=== PATIENT | female | born 1940 | race Caucasian/White ===

== ENCOUNTER 2018-06-30 11:10 | Observation (INO) | payer OTHER ==
--- OUTSIDE RECORDS SUMMARY | 2018-06-30 11:12 | XMS REPORT ---
:1940 [facility] Address [address] [place] [address] Dr. [address] [place] [address] Care Team Providers Name Role Phone Unavailable Unavailable Unavailable Problems This patient has no known problems. Allergies, Adverse Reactions, Alerts This patient has no known allergies or adverse reactions. Medications This patient has no known medications.
--- OUTSIDE RECORDS SUMMARY | 2018-06-30 11:12 | XMS REPORT | Clinical Summary ---
:1940 Author Organization [facility] Address [address] [place] [address] Care Team Providers Name Role Phone Dennis Wu MD Primary Care Provider Allergies Active Allergy Reactions Severity Noted Date Comments Penicillin G Rash Low 11/22/2017 Sulfa (Sulfonamide Antibiotics) Rash Low 11/22/2017 Medications Medication Sig Dispensed Refills Start Date End Date Status amIODarone Take 200 mg by 0 Active (PACERONE) 200 MG mouth 2 (two) tablet times a day. rivaroxaban Take 20 mg by 0 Active (XARELTO) 20 mg mouth daily. tablet ferrous sulfate 325 Take 325 mg by 0 Active (65 FE) MG tablet mouth 3 (three) times a week. levothyroxine Take 112 mcg by 0 Active (SYNTHROID, LEVOXYL) mouth every other 112 mcg tablet day. levothyroxine Take 100 mcg by 0 Active (SYNTHROID, LEVOXYL) mouth every other 100 mcg tablet day. valsartan-hydrochlor Take 1 tablet by 0 Active othiazide mouth daily. (DIOVAN-HCT) 320-12.5 mg per tablet cycloSPORINE Administer 1 drop 0 Active (RESTASIS) 0.05 % to both eyes ophthalmic emulsion every 12 (twelve) hours. metoprolol succinate Take 1 tablet (25 90 tablet 0 11/22/2017 02/20/2018 XL (TOPROL-XL) 25 mg mg total) by 24 hr tablet mouth daily for 90 days. Active Problems Not on file Encounters Date Type Specialty Care Team Description 01/31/2018 Hospital Encounter Procedural Matty Harris, Atrial fibrillation, Cardiology unspecified type 12/26/2017 Transcribe Orders Procedural Fahed, Matty, Atrial fibrillation, Cardiology MD unspecified type (Primary Dx) 11/22/2017 Surgery Procedural Matty Harris, Ep cardioversion w sergo Cardiology [28402 (CPT)] 11/22/2017 Anesthesia Event Procedural Delfin Donnelly Cardiology CRNA 11/22/2017 Hospital Encounter Procedural Matty Harris Atrial fibrillation Cardiology unspecified type 11/20/2017 Transcribe Orders Procedural Matty Harris Cardiology after 06/29/2017 Social History Tobacco Use Types Packs/Day Years Used Date Never Smoker Smokeless Tobacco: Never Used Alcohol Use Drinks/Week oz/Week Comments Yes Sex Assigned at Date Recorded Not on file Job Start Date Occupation Industry Not on file Not on file Not on file Travel History Travel Start Travel End No recent travel history available. Last Filed Vital Signs Vital Sign Reading Time Taken Blood Pressure 190/95 01/31/2018 10:58 AM CDT Pulse 98 01/31/2018 10:58 AM CDT Temperature 36.7 C (98.1 F) 11/22/2017 9:46 AM CDT Respiratory Rate 20 11/22/2017 12:05 PM CDT Oxygen Saturation 97% 11/22/2017 12:05 PM CDT Inhaled Oxygen Concentration - - Weight 62.3 kg (137 lb 6.4 oz) 11/22/2017 9:46 AM CDT Height 172.7 cm (5' 8") 11/22/2017 9:46 AM CDT Body Mass Index 20.89 11/22/2017 9:46 AM CDT Plan of Treatment Health Maintenance Due Date Last Done Comments BREAST CANCER SCREENING 1992 COLON CANCER SCREENING 1992 SHINGRIX VACCINE (1 of 2) 1992 ZOSTER VACCINE 2002 PNEUMOCOCCAL POLYSACCHARIDE VACCINE AGE 65 AND OVER 12/22/2007 PNEUMOCOCCAL-13 12/22/2007 INFLUENZA VACCINE 02/21/2018 Procedures Procedure Name Priority Date/Time Associated Comments Diagnosis CV CTA CORONARY PRE Routine 01/31/2018 11:23 Atrial Results for this AFIB PULMONARY VEIN AM CDT fibrillation, procedure are in MAPPING unspecified type the results section. ESTIMATED GFR Routine 01/31/2018 11:02 Results for this AM CDT procedure are in the results section. POC CREATININE Routine 01/31/2018 11:02 Results for this AM CDT procedure are in the results section. ECHOCARDIOGRAM Routine 11/22/2017 11:46 Results for this TRANSESOPHAGEAL AM CDT procedure are in the results section. ECG 12-LEAD STAT 11/22/2017 11:25 Results for this AM CDT procedure are in the results section. EP CARDIOVERSION W SERGO Routine 11/22/2017 11:21 Atrial Results for this AM CDT fibrillation, procedure are in unspecified type the results section. ECG 12-LEAD STAT 11/22/2017 10:00 Results for this AM CDT procedure are in the results section. after 06/29/2017 Results Cv cta pre afib pulmonary vein mapping (01/31/2018 11:23 AM CDT) Narrative Performed At [facility] [address] [place] [address] CTA Coronary Arteries Report Pat.Name:JORDY JAIMES Pat.ID:[id number] St.Date: 01/31/2018 Refer.MD:Matty Harris MD Exam Time: 11:02:00 AM Study Type:CTA Coronary Arteries Height:68inWeight: 137lb BSA: 1.74 m2 DOBAge:1940,77Y Sex: FEMALEBP: 190/95 HR:88 bpm Nuclear Tech:RT Fredrick(R)(CT) Pat. Stat.:Outpatient CPT - 4: AFIB w Coronary [id number] Nuclear Event ID:[id number] Order ID:[id number] Reason for Study:Atrial fibrillation ablation procedure Procedures:CTA Chest Non- Coronary Race:C SUMMARY: Technique: IV contrast was administered and sequential 0.[address] cuts were obtained through the chest [facility] the[facility] scanner. Post-processing and 3D reconstruction were done using the [employer] Shared workstation. Interactive image viewing and volumetric display and analysis were also performed. CTA RESULTS Left Main: A normal sized artery which arises normally from the left sinus of Valsalva and divides into the left anterior descending and circumflex coronary arteries. No significant atherosclerotic plaque is present. Left anterior descending (LAD): A normal sized artery which wraps around the apex and gives off two diagonal branches. No significant atherosclerotic plaque is present. The first diagonal is a normal sized artery which has no significant atherosclerotic plaque. The second diagonal is a normal sized artery which has no significant atherosclerotic plaque. Left circumflex: A normal sized non-dominant artery which gives off two major obtuse marginal arteries before terminating in the AV groove. No significant atherosclerotic plaque is present. The first obtuse marginal is a normal sized artery which has no significant atherosclerotic plaque. The second obtuse marginal is a normal sized bifurcating artery which has no significant atherosclerotic plaque. Right coronary artery: A normal sized dominant artery which arises normally from the right sinus of Valsalva and gives off several right ventricular branches, the posterior descending artery and the posterolateral artery.Mild calcified atherosclerotic plaque is present in the proximal and mid segments but without significant stenosis. The posterior descending is a normal sized artery which has no significant atherosclerotic plaque. The posterolateral branch is a normal sized artery which has no significant atherosclerotic plaque. Stents: None. Bypass Grafts: None. Pulmonary Arteries: Normal pulmonary artery sizes with no proximal thrombus identified. Left Atrial and Pulmonary Vein(PV) Dimensions: Left atrial size (A-P diameter) 4.1 cm. LA volume 142 ml. Normal PV anatomy Left superior PV15 mm. Left inferior PV15 mm. Right superior PV22 mm. Right inferior PV19 mm. There is no evidence of the left atrial appendage clot. Left Ventricular Valve Morphology/Function: LV septal wall thickness 7 mm. Thoracic Aortic Dimensions: No aortic aneurysm or dissection is seen. Aortic root: 3.2 cm. Sinotubular junction 2.7 cm. Mid ascending thoracic aorta 3.2 cm. Descending thoracic aorta 2.1 cm. Diffuse atherosclerotic disease is present. Pericardium: No pericardial effusion or pericardial thickening. Non-Cardiac Findings: Bilateral emphysematous lung changes. CONCLUSION CT coronary angiography shows no significant coronary artery stenosis. Normal PV anatomy. Bi-atrial enlargement Left atrial appendage appears ligated. NO LA or stump thrombus STUDY QUALITY The study quality is good. COMMENTS: None. The above report was based on a dedicated Cardiovascular CTA Protocol and interpreted by a Diesel Dragline Operator.Should a more comprehensive assessment of non-cardiovascular findings be desired, please consult a radiologist.These images are available in the [facility] [place] [employer] PACS system. Signed 01/31/2018 12:19 PM Dangelo Pereira MD Procedure Note Interface, Radiology Results In - 01/31/2018 12:19 PM CDT [facility] and Cardiac CT [address] [place] [address] CTA Coronary Arteries Report Pat.Name: JORDY JAIMES Pat.ID: [id number] St.Date: 01/31/2018 Refer.MD: Matty Harris MD Exam Time: 11:02:00 AM Study Type:CTA Coronary Arteries Height: 68in Weight: 137lb BSA: 1.74 m2 Age: 5 1940,77Y Sex: FEMALE BP: 190/95 HR: 88 bpm Nuclear Tech:RT Fredrick(R)(CT) Pat. Stat.:Outpatient CPT - 4: AFIB w Coronary [id number] Nuclear Event ID:[id number] Order ID: [id number] Reason for Study:Atrial fibrillation ablation procedure Procedures:CTA Chest Non- Coronary Race: C SUMMARY: Technique: IV contrast was administered and sequential 0.[address] cuts were obtained through the chest using the Siemens Som[employer] Force CT scanner. Post-processing and 3D reconstruction were done using the [employer] Shared workstation. Interactive image viewing and volumetric display and analysis were also performed. CTA RESULTS Left Main: A normal sized artery which arises normally from the left sinus of Valsalva and divides into the left anterior descending and circumflex coronary arteries. No significant atherosclerotic plaque is present. Left anterior descending (LAD): A normal sized artery which wraps around the apex and gives off two diagonal branches. No significant atherosclerotic plaque is present. The first diagonal is a normal sized artery which has no significant atherosclerotic plaque. The second diagonal is a normal sized artery which has no significant atherosclerotic plaque. Left circumflex: A normal sized non-dominant artery which gives off two major obtuse marginal arteries before terminating in the AV groove. No significant atherosclerotic plaque is present. The first obtuse marginal is a normal sized artery which has no significant atherosclerotic plaque. The second obtuse marginal is a normal sized bifurcating artery which has no significant atherosclerotic plaque. Right coronary artery: A normal sized dominant artery which arises normally from the right sinus of Valsalva and gives off several right ventricular branches, the posterior descending artery and the posterolateral artery. Mild calcified atherosclerotic plaque is present in the proximal and mid segments but without significant stenosis. The posterior descending is a normal sized artery which has no significant atherosclerotic plaque. The posterolateral branch is a normal sized artery which has no significant atherosclerotic plaque. Stents: None. Bypass Grafts: None. Pulmonary Arteries: Normal pulmonary artery sizes with no proximal thrombus identified. Left Atrial and Pulmonary Vein (PV) Dimensions: Left atrial size (A-P diameter) 4.1 cm. LA volume 142 ml. Normal PV anatomy Left superior PV15 mm. Left inferior PV15 mm. Right superior PV22 mm. Right inferior PV19 mm. There is no evidence of the left atrial appendage clot. Left Ventricular Valve Morphology/Function: LV septal wall thickness 7 mm. Thoracic Aortic Dimensions: No aortic aneurysm or dissection is seen. Aortic root: 3.2 cm. Sinotubular junction 2.7 cm. Mid ascending thoracic aorta 3.2 cm. Descending thoracic aorta 2.1 cm. Diffuse atherosclerotic disease is present. Pericardium: No pericardial effusion or pericardial thickening. Non-Cardiac Findings: Bilateral emphysematous lung changes. CONCLUSION CT coronary angiography shows no significant coronary artery stenosis. Normal PV anatomy. Bi-atrial enlargement Left atrial appendage appears ligated. NO LA or stump thrombus STUDY QUALITY The study quality is good. COMMENTS: None. The above report was based on a dedicated Cardiovascular CTA Protocol and interpreted by a Diesel Dragline Operator. Should a more comprehensive assessment of non-cardiovascular findings be desired, please consult a radiologist. These images are available in the [facility] [place] [employer] PACS system. Signed 01/31/2018 12:19 PM Dangelo Pereira MD Performing Organization Address City/State/Zipcode Phone Number [facility] [address] [place] [address] Estimated GFR (01/31/2018 11:02 AM CDT) GFR Non Af Amer 61 mL/min/1.73 m2 [facility] DEPARTMENT OF PATHOLOGY AND GENOMIC MEDICINE GFR Af Amer 74 mL/min/1.73 m2 [facility] DEPARTMENT OF Comment: PATHOLOGY AND GENOMIC Chronic kidney disease: <60 mL/min/1.73m2 MEDICINE Kidney failure: <15 mL/min/1.73m2 The estimated GFR is calculated from the IDMS-traceable Modification of Diet in Renal Disease Equation. The accuracy of the calculation is poor when the creatinine is normal. Calculated values >90 mL/min/1.73m2 are not reported. This equation has not been validated in children (<18 years), women, the elderly (>70 years), or ethnic groups other than Caucasians and Americans. Specimen Blood Performing Organization Address City/[facility]/Zipcode Phone Number [facility] DEPARTMENT OF PATHOLOGY AND [address] [place] [address] [employer] MEDICINE POC creatinine (01/31/2018 11:02 AM CDT) POC creatinine 0.9 0.5 - 0.9 mg/dl [facility] DEPARTMENT OF PATHOLOGY Comment: AND GENOMIC MEDICINE Meter ID: [id number] Cement Tester Assistant: Santy Hernandez Specimen Blood Performing Organization Address [facility] Phone Number [facility] DEPARTMENT OF PATHOLOGY AND [address] [place] [address] [employer] [facility] Echocardiogram transesophageal (11/22/2017 11:46 AM CDT) Narrative Performed At [facility] Transesophageal Echo Report [address] [place] [address], [place] [address] Pat.Name:JORDY JAIMES Pat.ID:[id number] .Date: 11/22/2017Refer.MD:Matty Harris MD Exam Time: 10:38:00 AM Study Type:SERGO Height:68.11in Weight:137lb BSA: 1.74 m2 DOBAge:1940,76Y Sex: FEMALEBP:197/97 HR:102 bpm Sonogrphr: Keon Lopez MD Pat. Stat.:OutpatientStudy Status:Final Echo Event ID:[id number] Order ID:[id number] Reason for Study:Atrial fibrillation History / Clinical:Arrhythmias, Atrial Fibrillation Procedures:Transesophageal Echo with Colorflow Doppler Race:C FINDINGS: SERGO:The attending photography colorist performed the SERGO procedure and waspresent for the entire duration. The patient was counseledand an informed consent was obtained. Topical and intravenousanesthesia was administered. The esophagus was intubatedwithout difficulty. The probe was passed to the gastricfundus and all standard echocardiographic views wereobtained. The patient tolerated the procedure well. LV: LV size is normal. LV EF is normal. Overall wall motion is normal.Estimated EF is 55-59%. RV: RV size is normal. RV systolic function is normal. LA: LA volume is enlarged. No thrombus or mass is visualized in theLA. LA appendage flush occlusion due to prior clip; minimalstump present.. RA: RA volume is enlarged. AO: Mild atherosclerotic changes seen in the aortic arch and descendingaorta. UZMA: No pericardial effusion. AV: No structural AV abnormalities noted. MV: No structural MV abnormalities noted. Mild mitral regurgitation. PV: No structural PV abnormalities noted. TV: No structural TV abnormalities noted. Mild tricuspid regurgitation SERGO: Anesthesia: Per Anesthesia ASA Class: 3 Physician: Dangelo Pereira MD Fagot Heater: Keon Lopez MD Pre TEEBP HR Post SERGO BP HR 197/97 102 115/56 96 Meds:Viscous xylocaine, Cetacaine spray to oropharynx, Per Anesthesia Complications: None Condition: Stable Signed 11/22/2017 12:07 PM Dangelo Pereira MD Procedure Note Interface, Radiology Results In - 11/22/2017 12:07 PM CDT Transesophageal Echo Report [address], [place], [place] [address] [facility].Name: JORDY JAIMES.ID: [id number] .Date: 11/22/2017 Refer.MD: Matty Harris MD Exam Time: 10:38:00 AM Study Type:SERGO Height: 68.11in Weight: 137lb BSA: 1.74 m2 Age: 5 1940,76Y Sex: FEMALE BP: 197/97 HR: 102 bpm Sonogrphr: Keon Lopez MD Pat. Stat.:Outpatient Study Status:Final Echo Event ID:[id number] Order ID: [id number] Reason for Study:Atrial fibrillation History / Clinical:Arrhythmias, Atrial Fibrillation Procedures:Transesophageal Echo with Colorflow Doppler Race: C FINDINGS: SERGO: The attending photography colorist performed the SERGO procedure and was present for the entire duration. The patient was counseled and an informed consent was obtained. Topical and intravenous anesthesia was administered. The esophagus was intubated without difficulty. The probe was passed to the gastric fundus and all standard echocardiographic views were obtained. The patient tolerated the procedure well. LV: LV size is normal. LV EF is normal. Overall wall motion is normal. Estimated EF is 55-59%. RV: RV size is normal. RV systolic function is normal. LA: LA volume is enlarged. No thrombus or mass is visualized in the LA. LA appendage flush occlusion due to prior clip; minimal stump present.. RA: RA volume is enlarged. AO: Mild atherosclerotic changes seen in the aortic arch and descending aorta. UZMA: No pericardial effusion. AV: No structural AV abnormalities noted. MV: No structural MV abnormalities noted. Mild mitral regurgitation. PV: No structural PV abnormalities noted. TV: No structural TV abnormalities noted. Mild tricuspid regurgitation SERGO: Anesthesia: Per Anesthesia ASA Class: 3 Physician: Dangelo Pereira MD Fagot Heater: Keon Lopez MD Pre SERGO BP HR Post SERGO BP HR 197/97 102 115/56 96 Meds: Viscous xylocaine, Cetacaine spray to oropharynx, Per Anesthesia Complications: None Condition: Stable Signed 11/22/2017 12:07 PM Dangelo Pereira MD Performing Organization Address [facility] Phone Number [employer] [address] [place] [address] ECG 12 lead (11/22/2017 11:25 AM CDT)Only the most recent of2 resultswithin the time period is included. Ventricular rate 83 [facility] Atrial rate 83 [facility] KS interval 314 [facility] QRSD interval 88 [facility] QT interval 404 [facility] QTC interval 474 [facility] P axis 1 104 [facility] QRS axis 1 15 [facility] T wave axis 80 [facility] EKG impression Sinus rhythm with sinus arrhythmia with 1st degree AV block- Prolonged QT-Abnormal ECG-In automated comparison with ECG of 22-NOV-2017 10:00, -Sinus rhythm has replaced Atrial [id number]-Cbo-dxdsqfwg change in ST segment in Inferior leads-Electronically [facility] MUSE Signed By Vipin Blackwood ([id number]) on 11/23/2017 8:29:25 AM Performing Organization Address [facility] Phone Number [facility] MUSE [address] [place] [address] Cv electrophysiology procedure (11/22/2017 11:21 AM CDT) Narrative Performed At [employer] ANALYST: MAXIMO Harris MD COMPLICATIONS: None. ESTIMATED BLOOD LOSS: Zero. SPECIMENS: None. SEDATION: Moderate. PREOPERATIVE DIAGNOSIS: Atrial fibrillation. POSTOPERATIVE DIAGNOSIS: Atrial fibrillation. PROCEDURES PERFORMED: 1.Sedation administered, monitored by anesthesia service. 2.External cardioversion PREOPERATIVE HISTORY OF PRESENT ILLNESS: The patient is a 76year-old female with a history of long standing persistent atrial Fibrillation s/p Lariat procedure 5 years ago followed by unsuccessful ablation 2 months later who was referred to me for symptomatic atrial fibrillation despite being on very high dose of sotalol. Patient was loaded with amiodarone and presents to today for both SERGO and CVN. Reason for SERGO is to assess BLAYNE remnant anatomy and decide on anticoagulation. PROCEDURE IN DETAIL: The patient was brought to the procedure room in a fasting state. Informed consent was obtained.He had a SERGO performed immediately before the cardioversion, which demonstratingNO left atrial appendage, very smooth remnant and complete occlusion from Lariat. There was no smoke but very enlarged atria.Additional propofol was administered and a synchronized 300-joule biphasic shock was delivered did not convert the patient. A repeat DCCV with 360J converted to NSR for ~20secs before afib recurred. Repeat DCCV with 360J x1 converted gain afib to NSR. However on ECG done 5 minutes later, patient was in a very slow AFL with 2:1 conduction (~80bpm). Monitored anesthesia care was used for the procedure. Patient woke up from anesthesia intact. CONCLUSION: Unuccessful electrical cardioversion of atrial fibrillation to slow atrial flutter. No BLAYNE stump seen on SERGO RECOMMENDATIONS: -Continue amiodarone 200mg BID for now -Follow-up with me in 2 weeks; If afib recurrence, we'll discuss [employer]-P with AVJ ablation Performing Organization Address City/State/Zipcode Phone Number [facility] [address] [place] [address] after 06/29/2017 Insurance Payer Benefit Plan / Group Subscriber ID Type Phone Address MEDICARE MEDICARE PART A AND B xxxxxxxxxx Medicare [place], [place] AETNA AETNA PPO OPEN CHOICE xxxxxxxxx PPO Advance Directives Patient has advance care planning documents, and code status on file. For more information, please contact:Rylan Skelton[address] [place] [address] Code Status Date Activated Date Inactivated Comments Full Code 11/22/2017 11:35 AM 11/22/2017 4:24 PM Code Status decision reached by: Patient
--- NOTE | 2018-06-30 11:56 | RAD REPORT ---
EXAM DESCRIPTION: CT - Head Brain Wo Cont - 06/30/2018 11:30 am CLINICAL HISTORY: Confusion COMPARISON: None. TECHNIQUE: Computed axial tomography of the head was obtained. IV contrast was not requested. All CT scans are performed using dose optimization technique as appropriate and may include automated exposure control or mA/KV adjustment according to patient size. FINDINGS: An intracranial bleed is not seen . The ventricles are normal in caliber. No extra-axial fluid collection is noted. Fluid within the sinuses/ mastoids is not seen. IMPRESSION: No acute intracranial abnormality is seen. If patient's symptoms persist MRI of the bra in would be recommended.
[2018-06-30 12:07] LABS: Absolute Lymphocytes (CBC) 0.7 K/uL (0.7-4.9); Absolute Monocytes 0.7 K/uL (0.1-1.3); Absolute Neutrophil 5.3 K/uL (1.8-8.0); Basophils % 1.2 % (0-1.3); Eosinophils % 2.2 % (0-4.4); Hematocrit 37.2 % (36.0-45.0); Lymphocytes % 10.2 % (15.3-44.8); MCH 34.4 pg (27.0-35.0); MCV 99.5 fL (80-100); MPV 8.1 fL (7.6-11.3); Monocytes % 10.2 % (3.3-12.3); RBC Red Blood Cell Count 3.74 M/uL (3.86-4.86)
[2018-06-30 12:10] LABS: Protime INR 1.09
--- NOTE | 2018-06-30 12:17 | RAD REPORT ---
EXAM DESCRIPTION: Timo Single View06/30/2018 11:50 am CLINICAL HISTORY: Hypertension COMPARISON: 2010 FINDINGS: The lungs appear clear of acute infiltrate. The heart is normal size IMPRESSION: No acute abnormalities displayed
[2018-06-30 12:22] LABS: ALT/SGPT 30 U/L (12-78); AST/SGOT 21 U/L (15-37); Alkaline Phosphatase 128 U/L (45-117); BUN Blood Urea Nitrogen 23 mg/dL (7-18); Bicarbonate 28 mmol/L (21-32); Bilirubin Direct 0.2 mg/dL (0-0.2); Bilirubin Total 0.7 mg/dL (0.2-1.0); CKMB Creatine Kinase MB 1.1 ng/mL (0.3-3.6); Creatine Phosphokinase 53 U/L (26-192); Glucose Level 118 mg/dL (74-106); Lipase 263 U/L (73-393); Magnesium 2.3 mg/dL (1.8-2.4); Potassium 3.7 mmol/L (3.5-5.1); Protein, Total 7.1 g/dL (6.4-8.2); Sodium Level 140 mmol/L (136-145); Troponin (Emerg Dept Use Only) < 0.02 ng/mL (0.0-0.045)
[2018-06-30 12:57] LABS: Urine Amorphous Sediment 1+ /HPF (NONE SEEN); Urine Bacteria NONE SEEN /HPF (<20); Urine Culture Reflex Order NOT NEEDED; Urine RBC NONE SEEN /HPF (NONE SEEN)
[2018-06-30 13:44] LABS: Urine Blood NEGATIVE (NEG); Urine Glucose NEGATIVE (NEG); Urine Protein NEGATIVE (NEG); Urine Specific Gravity 1.015 (1.005-1.030); Urine pH 6.5 (5.0-7.0)
[2018-06-30] MEDS ORDERED: NA CHLORIDE 0.9% 0 ML ONE (13:52)
[2018-06-30] MEDS ORDERED: NA CHLORIDE 0.9% 500 ML ONE (13:57)
--- NOTE | 2018-06-30 14:46 | EDPHYS ---
Physician Documentation [facility] Name: Etta Pan Age: 77 yrs Sex: Female : 1940 Arrival Date: 06/30/2018 Time: 11:10 Bed 7 Private MD: Dennis Wu V ED Physician Claudio Hussein HPI: 06/30 13:09 This 77 yrs old Female presents to ER via Wheelchair with complaints of High snw Blood Pressure, CONFUSION. 13:09 The patient has elevated blood pressure and discovered this unknown. Onset: The snw symptoms/episode began/occurred suddenly, today. Modifying factors: The symptoms are aggravated by felt confused. Associated signs and symptoms: The patient has no apparent associated signs or symptoms. Severity of symptoms: At its worst the blood pressure was 170 mm Hg. It is unknown whether or not the patient has had similar symptoms in the past. cataract - lens replacement to left one week ago. Historical: - Allergies: 11:24 Sulfa (Sulfonamide Antibiotics); sv - Home Meds: 11:24 Avalide oral oral [Active]; metoprolol succinate oral oral [Active]; levothyroxine oral sv [Active]; mitochondrial energy boost [Active]; curaphen [Active]; multi probiotic [Active]; urinary tract essentials [Active]; - PMHx: 11:24 Atrial Fib; Hypertension; sv - Ebola Screening: : No symptoms or risks identified at this time. ROS: 13:09 Constitutional: Negative for fever, chills, and weight loss, Eyes: Negative for injury, snw pain, redness, and discharge, ENT: Negative for injury, pain, and discharge, Neck: Negative for injury, pain, and swelling, Cardiovascular: Negative for chest pain, palpitations, and edema, Respiratory: Negative for shortness of breath, cough, wheezing, and pleuritic chest pain, Abdomen/GI: Negative for abdominal pain, nausea, vomiting, diarrhea, and constipation, Back: Negative for injury and pain, : Negative for injury, bleeding, discharge, and swelling, MS/Extremity: Negative for injury and deformity, Skin: Negative for injury, rash, and discoloration. 13:09 Neuro: Positive for feeling confused/off. Exam: 13:09 Constitutional: This is a well developed, well nourished patient who is awake, alert, snw and in no acute distress. Head/Face: Normocephalic, atraumatic. Eyes: Pupils equal round and reactive to light, extra-ocular motions intact. Lids and lashes normal. Conjunctiva and sclera are non-icteric and not injected on right, left with discoloration/hemorrhage post lens replacement one week ago. Cornea within normal limits. Periorbital areas with no swelling, redness, or edema. ENT: Nares patent. No nasal discharge, no septal abnormalities noted. Tympanic membranes are normal and external auditory canals are clear. Oropharynx with no redness, swelling, or masses, exudates, or evidence of obstruction, uvula midline. Mucous membranes moist. Neck: Trachea midline, no thyromegaly or masses palpated, and no cervical lymphadenopathy. Supple, full range of motion without nuchal rigidity, or vertebral point tenderness. No Meningismus. Chest/axilla: Normal chest wall appearance and motion. Nontender with no deformity. No lesions are appreciated. Cardiovascular: Regular rate and rhythm with a normal S1 and S2. No gallops, murmurs, or rubs. Normal PMI, no JVD. No pulse deficits. Respiratory: Lungs have equal breath sounds bilaterally, clear to auscultation and percussion. No rales, rhonchi or wheezes noted. No increased work of breathing, no retractions or nasal flaring. Abdomen/GI: Soft, non-tender, with normal bowel sounds. No distension or tympany. No guarding or rebound. No evidence of tenderness throughout. Back: No spinal tenderness. No costovertebral tenderness. Full range of motion. Skin: Warm, dry with normal turgor. Normal color with no rashes, no lesions, and no evidence of cellulitis. MS/ Extremity: Pulses equal, no cyanosis. Neurovascular intact. Full, normal range of motion. Neuro: Awake and alert, GCS 15, oriented to person, place, time, and situation. Cranial nerves II-XII grossly intact. Motor strength 5/5 in all extremities. Sensory grossly intact. Cerebellar exam normal. Normal gait. Psych: Awake, alert, with orientation to person, place and time. Behavior, mood, and affect are within normal limits. Vital Signs: 11:15 BP 197 / 106; Pulse 104; Resp 18; Pulse Ox 100% ; Weight 62.14 kg; Height 5 ft. 5 in. sv (165.10 cm); Pain 0/10; 11:20 Temp 98.0(O); ss 11:52 BP 166 / 89; Pulse 95; Resp 18 S; Pulse Ox 96% on R/A; Pain 0/10; aa5 12:30 BP 168 / 93; Pulse 95; Resp 13; Pulse Ox 97% on R/A; mh5 13:00 BP 160 / 85; Pulse 90; Resp 16 S; Pulse Ox 98% on R/A; aa5 13:45 BP 145 / 86; Pulse 92; Resp 12; Pulse Ox 97% on R/A; mh5 15:00 BP 165 / 89; Pulse 90; Resp 18 S; Temp 98.0(TE); Pulse Ox 97% on R/A; Pain 0/10; aa5 11:15 Body Mass Index 22.80 (62.14 kg, 165.10 cm) sv NIH Stroke Scale Scores: 11:20 NIHSS Score: 0 aa5 13:09 NIHSS Score: 0 snw Noemi Coma Score: 13:09 Eye Response: spontaneous(4). Verbal Response: oriented(5). Motor Response: obeys snw commands(6). Total: 15. MDM: 11:22 Patient medically screened. snw 11:29 Data reviewed: vital signs, nurses notes. Data interpreted: Pulse oximetry: on room air snw is 100 %. Interpretation: normal. ED course: pt to CT post FSBS (130's), returned via w/c, taken to x-ray via w/c. 13:09 ED course: Pt is not a candidate for TPA, no s/s. snw 14:46 Physician consultation: Dennis Wu MD was called at 14:30, was contacted at 14:30, snw regarding admission, patient's condition. 14:46 ED course: Dr. Wu at bedside. snw 06/30 11:23 Order name: Hepatic Function; Complete Time: 12:32 snw 12 11:23 Order name: Ckmb; Complete Time: 12:32 snw 12 11:23 Order name: CPK; Complete Time: 12:32 snw 06/30 11:23 Order name: Lipase; Complete Time: 12:32 snw 06/30 11:23 Order name: Magnesium; Complete Time: 12:32 snw 06/30 11:23 Order name: Troponin (emerg Dept Use Only); Complete Time: 12:32 snw 06/30 11:13 Order name: CT Head Brain wo Cont; Complete Time: 11:59 ss 06/30 11:23 Order name: Basic Metabolic Panel; Complete Time: 12:32 snw 06/30 11:23 Order name: CBC with Diff; Complete Time: 12:10 snw 06/30 11:23 Order name: Protime (+inr); Complete Time: 12:21 snw 06/30 11:23 Order name: Ptt, Activated; Complete Time: 12:21 snw 06/30 11:23 Order name: Urine Culture snw 06/30 11:23 Order name: Urine Microscopic Only; Complete Time: 12:58 snw 06/30 13:35 Order name: Urine Dipstick--Ancillary (enter results); Complete Time: 14:07 bd 06/30 11:22 Order name: FSBS; Complete Time: 11:50 snw 06/30 11:23 Order name: Call for Old EKG; Complete Time: 11:50 snw 06/30 11:23 Order name: Call for Old Records; Complete Time: 11:50 snw 06/30 11:23 Order name: Stroke CXR 1 View; Complete Time: 12:21 snw 06/30 11:23 Order name: EKG; Complete Time: 11:24 snw 06/30 11:23 Order name: Cardiac monitoring; Complete Time: 11:25 snw 06/30 11:23 Order name: EKG - Nurse/Tech; Complete Time: 11:40 snw 06/30 11:23 Order name: IV Saline Lock; Complete Time: 11:50 snw 06/30 11:23 Order name: Labs collected and sent; Complete Time: 11:50 snw 06/30 11:23 Order name: NPO; Complete Time: 11:50 snw 06/30 11:23 Order name: O2 Per Protocol; Complete Time: 11:25 snw 06/30 11:23 Order name: O2 Sat Monitoring; Complete Time: 11:25 snw 06/30 11:23 Order name: Stroke Swallow Screen; Complete Time: 12:41 snw 06/30 11:23 Order name: Urine Dipstick-Ancillary (obtain specimen); Complete Time: 12:28 snw 12 14:19 Order name: consult Order-Dennis Wu MD (Internal Medicine) sn Administered Medications: 13:25 Drug: NS 0.9% 500 ml Route: IV; Rate: bolus; Site: right antecubital; ca1 14:05 Follow up: IV Status: Completed infusion aa5 15:19 Drug: Eliquis 5 mg Route: PO; aa5 15:35 Follow up: Response: No adverse reaction aa5 Point of Care Testing: Blood Glucose: 11:15 Blood Glucose: 135 mg/dL; sv Ranges: Critical Glucose Levels:Adult <50 mg/dl or >400 mg/dl <40 mg/dl or >180 mg/dl Disposition: 06/30/18 14:46 Hospitalization ordered by Dennis Wu for Observation. Preliminary diagnosis is Altered mental status, unspecified - Confusion. - Bed requested for Telemetry/MedSurg (observation). - Status is Observation. aa5 - Condition is Stable. - Problem is new. - Symptoms are unchanged. UTI on Admission? No NIH Stroke Scale - NIH Stroke Score Date: 06/30/2018 Time: 11:20 Total Score = 0 1a. Level of Consciousness (LOC) - 0(Alert) 1b. Level of Consciousness (LOC) (Year \T\ Age) - 0(Both) 1c. LOC Commands (Open \T\ Closes Eyes/Ambulatory Service Representative) - 0(Both) 2. Best Gaze (Lateral Gaze Paresis) - 0(Normal) 3. Visual Field Loss - 0(No visual loss) 4. Facial Palsy - 0(Normal) 5a. Left Arm: Motor (10-second hold) - 0(No drift) 5b. Right Arm: Motor (10-second hold) - 0(No drift) 6a. Left Leg: Motor (5-second hold - always test supine) - 0(No drift) 6b. Right Leg: Motor (5-second hold - always test supine) - 0(No drift) 7. Limb Ataxia (finger/nose \T\ heel/watts - test with eyes open) - 0(Absent) 8. Sensory Loss (pinprick arms/legs/face) - 0(Normal) 9. Best Language: Aphasia (description/naming/reading) - 0(No aphasia) 10. Dysarthria (speech clarity - read or repeat words) - 0(Normal) 11. Extinction and Inattention (visual/tactile/auditory/spatial/personal) - 0(No abnormality) Initials: aa5 NIH Stroke Scale - NIH Stroke Score Date: 06/30/2018 Time: 13:09 Total Score = 0 1a. Level of Consciousness (LOC) - 0(Alert) 1b. Level of Consciousness (LOC) (Year \T\ Age) - 0(Both) 1c. LOC Commands (Open \T\ Closes Eyes/Ambulatory Service Representative) - 0(Both) 2. Best Gaze (Lateral Gaze Paresis) - 0(Normal) 3. Visual Field Loss - 0(No visual loss) 4. Facial Palsy - 0(Normal) 5a. Left Arm: Motor (10-second hold) - 0(No drift) 5b. Right Arm: Motor (10-second hold) - 0(No drift) 6a. Left Leg: Motor (5-second hold - always test supine) - 0(No drift) 6b. Right Leg: Motor (5-second hold - always test supine) - 0(No drift) 7. Limb Ataxia (finger/nose \T\ heel/watts - test with eyes open) - 0(Absent) 8. Sensory Loss (pinprick arms/legs/face) - 0(Normal) 9. Best Language: Aphasia (description/naming/reading) - 0(No aphasia) 10. Dysarthria (speech clarity - read or repeat words) - 0(Normal) 11. Extinction and Inattention (visual/tactile/auditory/spatial/personal) - 0(No abnormality) Initials: snw Addendum: 07/02/2018 06:23 Co-signature as Attending Physician, Claudio Hussein MD I agree with the [facility] assessment and plan of care. Signatures: Dispatcher [employer] Muriel Elmore RN Licha Sheldon RN RN dw Anderson, Corey, MD MD cha Therrien, Shelly, TICKER MAINTAINER-C TICKER MAINTAINER-Csnw Mckayla Curtis, RN RN aa5 Pilar White RN RN ss Silvia Geigre RN RN ca1 Corrections: (The following items were deleted from the chart) 06/30 15:11 14:46 Hospitalization Ordered by Dennis Wu MD for Observation. Preliminary dw diagnosis is Altered mental status, unspecified - Confusion. Bed requested for Telemetry/MedSurg (observation). Status is Observation. Condition is Stable. Problem is new. Symptoms are unchanged. UTI on Admission? No. snw 15:40 15:11 06/30/2018 14:46 Hospitalization Ordered by Dennis Wu MD for aa5 Observation. Preliminary diagnosis is Altered mental status, unspecified - Confusion. Bed requested for Telemetry/MedSurg (observation). Status is Observation. Condition is Stable. Problem is new. Symptoms are unchanged. UTI on Admission? No. dw
--- NOTE | 2018-06-30 14:46 | ER ---
Nurse's Notes [facility] Name: Etta Pan Age: 77 yrs Sex: Female : 1940 Arrival Date: 06/30/2018 Time: 11:10 Bed 7 Private MD: Dennis Wu V Diagnosis: Altered mental status, unspecified-Confusion Presentation: 06/30 11:12 Presenting complaint: Patient states: woke up this morning at 0700 with confusion. sv Unable to recall the year and had a hard time concentrating. Denies loss of balance, slurred speech. BP was high and took her regular medications and got a flu shot yesterday. Transition of care: patient was not received from another setting of care. Onset of symptoms was June 30, 2018 at 07:00. Care prior to arrival: None. 11:12 Method Of Arrival: Wheelchair sv 11:12 Acuity: JALEN 2 sv 11:12 An acute neurological deficit is present. The charge nurse has been notified. The sv patient has been moved to a treatment area. Pre-hospital glucose is not applicable to this patient. 11:15 Risk Assessment: Do you want to hurt yourself or someone else? Patient reports no aa5 desire to harm self or others. Initial Sepsis Screen: Does the patient meet any 2 criteria? No. Patient's initial sepsis screen is negative. Does the patient have a suspected source of infection? No. Patient's initial sepsis screen is negative. Triage Assessment: 11:13 The onset of the patients symptoms was June 30, 2018 at 07:00. General: Appears in sv no apparent distress. comfortable, slender, Behavior is calm, cooperative, appropriate for age, Last known well was 10 pm last night before going to bed.. Pain: Denies pain. EENT: No signs and/or symptoms were reported regarding the EENT system. Neuro: Level of Consciousness is awake, alert, obeys commands, confused, Oriented to person, place, situation, Moves all extremities. Full function Gait is steady, Speech is normal, Facial symmetry appears normal, Facial symmetry: tongue is midline. Respiratory: Respiratory effort is even, unlabored, Respiratory pattern is regular, symmetrical. Derm: Skin is normal. Stroke Activation: Symptom onset > 6 hours Physician: Stroke Attending; Name: ; Notified At: ; Arrived At: Physician: Chief Stroke Resident; Name: ; Notified At: ; Arrived At: Physician: Stroke Resident; Name: ; Notified At: ; Arrived At: Physician: ED Attending; Name: ; Notified At: ; Arrived At: Physician: ED Resident; Name: ; Notified At: ; Arrived At: Historical: - Allergies: 11:24 Sulfa (Sulfonamide Antibiotics); sv - Home Meds: 11:24 Avalide oral oral [Active]; metoprolol succinate oral oral [Active]; levothyroxine oral sv [Active]; mitochondrial energy boost [Active]; curaphen [Active]; multi probiotic [Active]; urinary tract essentials [Active]; - PMHx: 11:24 Atrial Fib; Hypertension; sv - Ebola Screening: : No symptoms or risks identified at this time. Screenin:50 Abuse screen: Denies threats or abuse. Nutritional screening: No deficits noted. aa5 Tuberculosis screening: No symptoms or risk factors identified. Fall Risk No fall in past 12 months (0 pts). No secondary diagnosis (0 pts). IV access (20 points). Ambulatory Aid- None/Bed Rest/Nurse Assist (0 pts). Gait- Normal/Bed Rest/Wheelchair (0 pts) Mental Status- Oriented to own ability (0 pts). Total Tomlinson Fall Scale indicates No Risk (0-24 pts). Assessment: 11:20 General: Appears uncomfortable, Behavior is calm, cooperative. Pain: Denies pain. aa5 Neuro: Level of Consciousness is awake, alert, obeys commands, Oriented to person, place, time, situation, Sap Bw Bi Developer are equal bilaterally Moves all extremities. Speech is normal, Facial symmetry appears normal, Pupils are PERRLA, Pt is slow to respond. Pt states "I feel like I am not thinking straight today". Denies weakness. . Cardiovascular: Heart tones S1 S2 present Rhythm is atrial fibrillation. Respiratory: Airway is patent Respiratory effort is even, unlabored, Respiratory pattern is regular, symmetrical, Breath sounds are clear bilaterally. GI: Abdomen is round non-distended, Bowel sounds present X 4 quads. Abd is soft and non tender X 4 quads. : Denies burning with urination. EENT: No signs and/or symptoms were reported regarding the EENT system. Derm: Skin is pink, warm \\T\\ dry. Musculoskeletal: Range of motion: intact in all extremities. 11:25 Reassessment: Pt to CT . aa5 11:40 Reassessment: Pt back from CT. X-ray at bedside . aa5 12:00 Reassessment: Patient is alert, oriented x 3, equal unlabored respirations, skin aa5 warm/dry/pink. Patient denies pain at this time. Pt assisted to bedside commode, pt voided x 1 . 12:41 Patient has been NPO before screening. The patient is alert, and able to follow aa5 commands. The patient does not exhibit slurred or garbled speech. The patient is not exhibiting difficulty speaking. The patient does not exhibit difficulty understanding words. The patient is able to swallow own secretions with no drooling or need for suction. Patient tolerated one teaspoon of water. No drooling, immediate coughing, gurgling, or clearing of the throat was noted. The patient tolerated 90mL of water. No drooling, immediate coughing, gurgling, or clearing of the throat was noted. The patient passed the bedside swallow screening. Oral medications may be given as ordered. Contact Physician for further diet orders. Provider notified of bedside swallow screening results: Nery QUISPE. 13:00 Reassessment: Patient and/or family updated on plan of care and expected duration. Pain aa5 level reassessed. Patient denies pain at this time. Pt sitting up in bed, A\\T\\O x 4, equal and unlabored respirations, skin is pink/warm/dry. . Cardiovascular: Rhythm is atrial fibrillation. 13:20 Reassessment: Pt assisted to bedside commode, voided x 1 . aa5 14:40 Reassessment: Patient is alert, oriented x 3, equal unlabored respirations, skin aa5 warm/dry/pink. Patient denies pain at this time. Awaiting Eliquis from pharmacy at this time. . 15:35 Reassessment: Patient is alert, oriented x 3, equal unlabored respirations, skin aa5 warm/dry/pink. Vital Signs: 11:15 BP 197 / 106; Pulse 104; Resp 18; Pulse Ox 100% ; Weight 62.14 kg; Height 5 ft. 5 in. sv (165.10 cm); Pain 0/10; 11:20 Temp 98.0(O); ss 11:52 BP 166 / 89; Pulse 95; Resp 18 S; Pulse Ox 96% on R/A; Pain 0/10; aa5 12:30 BP 168 / 93; Pulse 95; Resp 13; Pulse Ox 97% on R/A; mh5 13:00 BP 160 / 85; Pulse 90; Resp 16 S; Pulse Ox 98% on R/A; aa5 13:45 BP 145 / 86; Pulse 92; Resp 12; Pulse Ox 97% on R/A; mh5 15:00 BP 165 / 89; Pulse 90; Resp 18 S; Temp 98.0(TE); Pulse Ox 97% on R/A; Pain 0/10; aa5 11:15 Body Mass Index 22.80 (62.14 kg, 165.10 cm) sv [place] Coma Score: 13:09 Eye Response: spontaneous(4). Verbal Response: oriented(5). Motor Response: obeys snw commands(6). Total: 15. NIH Stroke Scale Scores: 11:20 NIHSS Score: 0 aa5 13:09 NIHSS Score: 0 snw ED Course: 11:10 Patient arrived in ED. dl4 11:11 Dennis Wu MD is Private Physician. dl4 11:12 Arm band placed on Patient placed in an exam room, on a stretcher, on hospital monitor, sv on pulse oximetry. 11:21 [facility] snw 11:21 Claudio Hussein MD is Attending Physician. snw 11:22 Triage completed. sv 11:28 CT completed. Patient moved to CT via wheelchair. Patient moved back from CT. bq 11:29 CT Head Brain wo Cont In Process Unspecified. EDMS 11:32 Silvia Geiger, RN is Primary Nurse. ca1 11:39 EKG done, by ED staff, reviewed by Claudio Hussein MD. mh5 11:40 Patient has correct armband on for positive identification. Placed in gown. Bed in low mh5 position. Call light in reach. Side rails up X 1. Warm blanket given. engine monitor on. Pulse ox on. NIBP on. 11:41 X-ray completed. Portable x-ray completed in exam room. Patient tolerated procedure la2 well. 11:42 Stroke CXR 1 View In Process Unspecified. EDMS 11:45 Initial lab(s) drawn, by me, sent to lab. Inserted saline lock: 20 gauge in right aa5 antecubital area, using aseptic technique. Blood collected. 11:45 No provider procedures requiring assistance completed. aa5 11:47 Mckayla Curtis, RN is Primary Nurse. aa5 12:27 Urine collected: clean catch specimen, clear. 5 12:27 Urine Culture Sent. 5 12:28 Urine Microscopic Only Sent. [facility] 14:45 Dennis Wu MD is Hospitalizing Provider. snw 15:35 Patient admitted, IV remains in place. aa5 Administered Medications: 13:25 Drug: NS 0.9% 500 ml Route: IV; Rate: bolus; Site: right antecubital; ca1 14:05 Follow up: IV Status: Completed infusion aa5 15:19 Drug: Eliquis 5 mg Route: PO; aa5 15:35 Follow up: Response: No adverse reaction aa5 Point of Care Testing: Blood Glucose: 11:15 Blood Glucose: 135 mg/dL; sv Ranges: Outcome: 14:46 Decision to Hospitalize by Provider. snw 15:35 Admitted to Tele accompanied by tech, via wheelchair, with chart, Report called to aa5 Paty Gonzalez RN 15:35 Condition: stable [facility] 15:35 Instructed on the need for admit, Demonstrated understanding of instructions. 15:40 Patient left the ED. aa5 NIH Stroke Scale - NIH Stroke Score Date: 06/30/2018 Time: 11:20 Total Score = 0 1a. Level of Consciousness (LOC) - 0(Alert) 1b. Level of Consciousness (LOC) (Year \\T\\ Age) - 0(Both) 1c. LOC Commands (Open \\T\\ Closes Eyes/Doughnut Icer) - 0(Both) 2. Best Gaze (Lateral Gaze Paresis) - 0(Normal) 3. Visual Field Loss - 0(No visual loss) 4. Facial Palsy - 0(Normal) 5a. Left Arm: Motor (10-second hold) - 0(No drift) 5b. Right Arm: Motor (10-second hold) - 0(No drift) 6a. Left Leg: Motor (5-second hold - always test supine) - 0(No drift) 6b. Right Leg: Motor (5-second hold - always test supine) - 0(No drift) 7. Limb Ataxia (finger/nose \\T\\ heel/watts - test with eyes open) - 0(Absent) 8. Sensory Loss (pinprick arms/legs/face) - 0(Normal) 9. Best Language: Aphasia (description/naming/reading) - 0(No aphasia) 10. Dysarthria (speech clarity - read or repeat words) - 0(Normal) 11. Extinction and Inattention (visual/tactile/auditory/spatial/personal) - 0(No abnormality) Initials: paola NIH Stroke Scale - NIH Stroke Score Date: 06/30/2018 Time: 13:09 Total Score = 0 1a. Level of Consciousness (LOC) - 0(Alert) 1b. Level of Consciousness (LOC) (Year \\T\\ Age) - 0(Both) 1c. LOC Commands (Open \\T\\ Closes Eyes/Doughnut Icer) - 0(Both) 2. Best Gaze (Lateral Gaze Paresis) - 0(Normal) 3. Visual Field Loss - 0(No visual loss) 4. Facial Palsy - 0(Normal) 5a. Left Arm: Motor (10-second hold) - 0(No drift) 5b. Right Arm: Motor (10-second hold) - 0(No drift) 6a. Left Leg: Motor (5-second hold - always test supine) - 0(No drift) 6b. Right Leg: Motor (5-second hold - always test supine) - 0(No drift) 7. Limb Ataxia (finger/nose \\T\\ heel/watts - test with eyes open) - 0(Absent) 8. Sensory Loss (pinprick arms/legs/face) - 0(Normal) 9. Best Language: Aphasia (description/naming/reading) - 0(No aphasia) 10. Dysarthria (speech clarity - read or repeat words) - 0(Normal) 11. Extinction and Inattention (visual/tactile/auditory/spatial/personal) - 0(No abnormality) Initials: snw Signatures: Dispatcher [employer] Muriel Elmore RN RN Nery Weir, SPUDDER-C SPUDDER-Csnw Cassidy Bedoya Audri, RN RN aa5 Pilar White RN RN ss Martinez, Maria 5 Sandra Qureshi [facility] Gene Alcantar4 Silvia Geiger RN RN ca1 Corrections: (The following items were deleted from the chart) 11:28 11:12 Presenting complaint: Patient states: woke up this morning at 0700 with sv confusion. Unable to recall the year and had a hard time concentrating. Denies loss of balance, slurred speech. BP was high and took her regular medications sv 14:01 12:00 Reassessment: Pt assisted to bedside commode, pt voided x 1 . aa5 aa5 15:44 15:35 Reassessment: Patient is alert, oriented x 3, equal unlabored aa5 respirations, skin warm/dry/pink. aa5 44 14:30 Reassessment: Patient is alert, oriented x 3, equal unlabored aa5 respirations, skin warm/dry/pink. Patient denies pain at this time. Awaiting Eliquis from pharmacy at this time. . aa5
[2018-06-30] MEDS ORDERED: APIXABAN 5 MG TABLET PO SCH (15:00)
[2018-06-30] MEDS ORDERED: NA CHLORIDE 0.9% 1,000 ML ONE (15:54)
[2018-06-30] MEDS: NA CHLORIDE 0.9% 1,000 ML IV SCH ×2 (15:59→19:50)
[2018-06-30 17:20] VITALS: BMI 22.8
--- NOTE | 2018-06-30 19:51 | P.HP ---
Certification for Inpatient Patient admitted to: Observation With expected LOS: <2 Midnights Practitioner: I am a practitioner with admitting privileges, knowledge of patient current condition, hospital course, and medical plan of care. Services: Services provided to patient in accordance with Admission requirements found in Title 42 Section 412.3 of the Code of Federal Regulations Patient History Date of Service: 06/30/18 Reason for admission: ALTERED MENTAL STATUS History of Present Illness: MS. ZAMORA HAS HAD A. FIB AND, LEFT ATRIAL APPENDAGE OCCLUSION. SHE DOES NOT TAKE ANTICOAGULATION. 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 SHE SUDDENLY BECAME DISORIENTED IN HER HOUSE. SHE WAS NOT SURE OF HER DAILY ROUTINE. SHE MADE BREAKFAST BUT WAS NOT SURE OF WHAT SHE WAS DOING. SHE NOW IS SOMEWHAT BETTER BUT TOTALLY NORMAL WHEN I SAW HER IN ER AT 2 PM. SHE HAS BEEN THERE FOR A FEW HOURS WHEN I CALLED ER DOCTOR I WANTED TO SEE HER BEFORE I LEFT HOSPITAL. SHE DOES NOT HAVE ANY SPEECH DIFFICULTY OR FOCAL WEAKNESS. WE DON'T HAVE MRI IN THIS STROKE CENTER ON THE WEEKEND AND ALSO WE DON'T HAVE A NEUROLOGIST AVAILABLE THIS WEEKEND. Allergies Penicillins Allergy (Intermediate, Verified 06/30/18 17:47) Hives/Rash Sulfa (Sulfonamide Antibiotics) Allergy (Intermediate, Verified 06/30/18 17:47) Hives/Rash Home Medications: Irbesartan/Hydrochlorothiazide [Avalide 300-12.5 mg Tablet] 1 tab PO DAILY 06/30 Levothyroxine [Synthroid] 112 mcg PO [id number] 06/30/18 Metoprolol Tartrate [Lopressor] 50 mg PO DAILY 06/30/18 - Past Medical/Surgical History Has patient received pneumonia vaccine in the past: Yes Diabetic: No -: ATRIAL FIBRILLATION -: HTN -: HYPOTHYROIDISM -: CATARACT SURGERY -: THYROIDECTOMY - Family History Father -: Heart disease, Hypertension Mother -: Heart disease, Hypertension, Other (see notes) Notes: lipid - Social History Smoking Status: Never smoker Alcohol use: No CD- Drugs: No Caffeine use: Yes Place of Residence: Home Review of Systems 10-point ROS is otherwise unremarkable Physical Examination - Vital Signs Temperature: 98 F Blood Pressure: 136/85 Pulse: 90 Respirations: 18 Pulse Ox (%): 94 - Physical Exam General: Alert, In no apparent distress HEENT: Atraumatic, PERRLA, Mucous membr. moist/pink, EOMI, Sclerae nonicteric Neck: Supple, 2+ carotid pulse no bruit, No LAD, Without JVD or thyroid abnormality Respiratory: Clear to auscultation bilaterally, Normal air movement Cardiovascular: Irregular heart rate/rhythm Gastrointestinal: Normal bowel sounds, No tenderness Musculoskeletal: No tenderness Integumentary: No rashes Neurological: Normal gait, Normal speech, Normal strength at 5/5 x4 extr, Normal tone, Normal affect Lymphatics: No axilla or inguinal lymphadenopathy - Studies Laboratory Data (last 24 hrs) 06/30/18 11:45: PT 12.9 H, INR 1.09, APTT 30.0 06/30/18 11:45: WBC 6.9, Hgb 12.8, Hct 37.2, Plt Count 290 06/30/18 11:45: Sodium 140, Potassium 3.7, BUN 23 H, Creatinine 0.80, Glucose 118 H, Magnesium 2.3, Total Bilirubin 0.7, AST 21, ALT 30, Alkaline Phosphatase 128 H, Lipase 263 Assessment and Plan - Problems (Diagnosis) (1) CVA (cerebral vascular accident) Current Visit: Yes Status: Acute Plan: THIS SOUNDS CLINICALLY LIKE A FRONTAL LOBE STROKE. CT SCAN IS NOT SUFFICIENT FOR STROKE. WE AT OUR STR[facility]KE CENTER HERE HAVE NO MRI FACILITY ON THE WEEKENDS. WE ALSO DON'T HAVE A NEUROLOGIST. SHE IS IMPROVING I WILL KEEP HER. I BELIEVE HER A FIB IS STILL RESPONSIBLE FOR A SMALL EMBOLIC STROKE. SHE HAS A FOREIGN BODY IN THE FORM OF POST SURGICAL AREA IN HER HEART. THIS ITSELF CAN GIVE RISE TO EMBOLI. I EXPLAINED TO HER. SHE IS WILLING TO GET ON ELIQUIS 5 MG PO BID WITH ABOVE CONCLUSION. WILL DC HER IN AM IF STABLE. (2) Atrial fibrillation Current Visit: Yes Status: Chronic Plan: NOW ON ELIQUIS. STOP ASPIRIN. - Advance Directives Does patient have a Living Will: No Does patient have a Durable POA for Healthcare: No
[2018-06-30] MEDS ORDERED: DIPHENHYDRAMINE 25 MG TAB/CAP PO PRN (19:57)
[2018-06-30] MEDS ORDERED: ACETAMINOPHEN 500 MG TAB PO PRN (19:57)
[2018-06-30] MEDS: APIXABAN 5 MG TABLET PO SCH (22:44)
[2018-07-01] MEDS ORDERED: LEVOTHYROXINE SOD 0.112 MG TAB PO SCH (06:30)
[2018-07-01] MEDS: APIXABAN 5 MG TABLET PO SCH (08:41)
[2018-07-01] MEDS ORDERED: HYDROCHLOROTHIAZIDE PO SCH (09:00)
[2018-07-01] MEDS ORDERED: IRBESARTAN PO SCH (09:00)
[2018-07-01] MEDS ORDERED: IRBESARTAN 150 MG TAB PO SCH (09:00)
[2018-07-01] MEDS ORDERED: METOPROLOL TAR 50 MG TAB PO SCH (09:00)
[2018-07-01] MEDS ORDERED: hydroCHLOROthiazide 12.5 MG CAP PO SCH (09:00)
[2018-07-01 10:15] VITALS: O2SAT 99
--- NOTE | 2018-07-01 11:34 | P.DS ---
Admission Date: 06/30/18 Discharge Date: 07/01/18 Disposition: ROUTINE DISCHARGE Discharge Condition: FAIR Reason for Admission: ALTERED MENTAL STATUS - Problems (1) CVA (cerebral vascular accident) Current Visit: Yes Status: Acute (2) Atrial fibrillation Current Visit: Yes Status: Chronic Brief History of Present Illness: MS. ZAMORA HAS HAD A. FIB AND, LEFT ATRIAL APPENDAGE OCCLUSION. SHE DOES NOT TAKE ANTICOAGULATION. 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 SHE SUDDENLY BECAME DISORIENTED IN HER HOUSE. SHE WAS NOT SURE OF HER DAILY ROUTINE. SHE MADE BREAKFAST BUT WAS NOT SURE OF WHAT SHE WAS DOING. SHE NOW IS SOMEWHAT BETTER BUT TOTALLY NORMAL WHEN I SAW HER IN ER AT 2 PM. SHE HAS BEEN THERE FOR A FEW HOURS WHEN I CALLED ER DOCTOR I WANTED TO SEE HER BEFORE I LEFT HOSPITAL. SHE DOES NOT HAVE ANY SPEECH DIFFICULTY OR FOCAL WEAKNESS. WE DON'T HAVE MRI IN THIS STROKE CENTER ON THE WEEKEND AND ALSO WE DON'T HAVE A NEUROLOGIST AVAILABLE THIS WEEKEND. MR ZAMORA IS BACK TO NORMAL. SHE WILL TAKE ELIQUIS BID. SHE IS STABLE FOR DC. STOP ASPIRIN. Vital Signs/Physical Exam: Temp Pulse Resp BP Pulse Ox 98.4 F 82 18 160/70 H 97 07/01/18 04:00 07/01/18 08:40 07/01/18 04:00 07/01/18 08:40 07/01/18 04:00 Laboratory Data at Discharge: WBC 6.9 K/uL (4.3-10.9) 06/30/18 11:45 Hgb 12.8 g/dL (12.0-15.0) 06/30/18 11:45 Hct 37.2 % (36.0-45.0) 06/30/18 11:45 Plt Count 290 K/uL (152-406) 06/30/18 11:45 PT 12.9 SECONDS (9.5-12.5) H 06/30/18 11:45 INR 1.09 06/30/18 11:45 APTT 30.0 SECONDS (24.3-36.9) 06/30/18 11:45 Sodium 140 mmol/L (136-145) 06/30/18 11:45 Potassium 3.7 mmol/L (3.5-5.1) 06/30/18 11:45 BUN 23 mg/dL (7-18) H 06/30/18 11:45 Creatinine 0.80 mg/dL (0.55-1.3) 06/30/18 11:45 Glucose 118 mg/dL (74-106) H 06/30/18 11:45 Magnesium 2.3 mg/dL (1.8-2.4) 06/30/18 11:45 Total Bilirubin 0.7 mg/dL (0.2-1.0) 06/30/18 11:45 AST 21 U/L (15-37) 06/30/18 11:45 ALT 30 U/L (12-78) 06/30/18 11:45 Alkaline Phosphatase 128 U/L (45-117) H 06/30/18 11:45 Lipase 263 U/L (73-393) 06/30/18 11:45 Home Medications: Irbesartan/Hydrochlorothiazide [Avalide 300-12.5 mg Tablet] 1 tab PO DAILY 06/30 Levothyroxine [Synthroid*] 112 mcg PO [id number] 06/30/18 Metoprolol Tartrate [Lopressor] 50 mg PO DAILY 06/30/18 Apixaban [Eliquis] 5 mg PO BID #60 tablet 07/01/18 New Medications: Apixaban [Eliquis] 5 mg PO BID #60 tablet Diet: AHA
[2018-07-01 12:11] VITALS: BP 184/83; TEMP 97.8
--- NOTE | 2018-07-02 07:14 | EKG ---
Test Date: 2018-06-30 Test Time: 11:36:54 International Trade Manager: LILIA MEASUREMENT RESULTS: Intervals: Rate: 95 [place]: QRSD: 82 QT: 336 QTc: 422 [place]: P: [place]: QRS: 26 T: 82 INTERPRETIVE STATEMENTS: Atrial fibrillation Nonspecific ST abnormality, probably digitalis effect Abnormal ECG Compared to ECG 10/19/2010 12:44:56 ST (T wave) deviation now present Sinus rhythm no longer present Electronically Signed On 07-02-18 07:11:19 REIMBURSEMENT ANALYST by Thien Barrios
== END 2018-07-01 13:44 | disposition home or self-care (01) ==
LOC: ER 11:10 → ERHOLD 14:50 → 4TH 15:28
PROVIDERS: ADMIT Internal Medicine; ATTEND Internal Medicine
DX: I63.9 Cerebral infarction, unspecified (principal); I48.2 Chronic atrial fibrillation; I10 Essential (primary) hypertension; E03.9 Hypothyroidism, unspecified; Z88.0 Allergy status to penicillin; Z88.2 Allergy status to sulfonamides
CPT/HCPCS: 36415; 70450; 71045; 80048; 80076; 82550; 82553; 82962; 83690; 83735; 84484; 85025; 85610; 85730; 87086; 87088; 93005; 94760 ×2; 96360; 99285; G0378 ×2; J7030 ×2; 81003; 81015